=== PATIENT | male | born 1960 | race African-American/Black ===

== ENCOUNTER → 2016-11-23 | Outpatient (CLI) | payer MEDICARE, OTHER ==
[~2016-11-23] MED LIST: CEPH-460 PO; CITA10TA4 PO; HYDR-3535 PO; METH500T3 PO; OXYC1TAB63 PO; SENN1TAB PO; TRAZ50TA4 PO; WALKER WHEELS/F1 MIS; WHEEMIS3; Z.0.NO CURRENT MEDS
[2016-11-23 10:44] LABS: BLOOD, URINE NEG (NEG); GLUCOSE,URINE NEG (NEG); KETONE, URINE NEG (NEG); NITRITE,URINE NEG (NEG); SQUAMOUS EPITHELIAL CELL URINE 1 /hpf (0-5)
[2016-11-23 10:51] LABS: COMMENT (UR) CULT NOT INDICATED; CULTURE IF INDICATED CULT NOT INDICATED
[2016-11-23 10:52] LABS: URINE COLOR STRAW (YELLW/STRAW)
[2016-11-23 10:52] LABS: AUTOMATED NEUTROPHIL # 4.2 TH/MM3 (1.8-7.7); BASOPHIL % 0.6 % (0.0-2.0); EOSINOPHIL # 0.2 TH/MM3 (0-0.4); EOSINOPHIL % 2.9 % (0.0-4.0); HEMATOCRIT 44.9 % (39.0-51.0); HEMO FLAGS DIFF FINAL; LYMPH % 33.1 % (9.0-44.0); LYMPHOCYTE # 2.5 TH/MM3 (1.0-4.8); MEAN CELL VOLUME 90.5 FL (80.0-100.0); MEAN CORPUSCULAR HEMOGLOBIN 31.5 PG (27.0-34.0); MEAN CORPUSCULAR HGB CONC 34.8 % (32.0-36.0); MONO % 6.6 % (0.0-8.0); NEUT % 56.8 % (16.0-70.0); PLATELET COUNT 296 TH/MM3 (150-450); RED BLOOD COUNT 4.96 MIL/MM3 (4.50-5.90); RED CELL DISTRIBUTION WIDTH 14.1 % (11.6-17.2); WHITE BLOOD COUNT 7.4 TH/MM3 (4.0-11.0)
[2016-11-23 11:07] LABS: ANION GAP 6 MEQ/L (5-15); AST (GOT) 15 U/L (15-37); BICARBONATE 24.8 MEQ/L (21.0-32.0); BLOOD UREA NITROGEN 11 MG/DL (7-18); CHLORIDE 104 MEQ/L (98-107); GLOMERULAR FILTRATION RATE 91 ML/MIN (>89); GLUCOSE,FASTING 101 MG/DL (74-99); POTASSIUM 3.7 MEQ/L (3.5-5.1); SODIUM (NA) 135 MEQ/L (136-145)
[2016-11-23 11:19] LABS: ALKALINE PHOSPHATASE 84 U/L (45-117); ALT (GPT) 17 U/L (12-78); HDL CHOLESTEROL 41.6 MG/DL (40.0-60.0); LDL CHOLESTEROL 171 MG/DL (0-99); TOTAL BILIRUBIN ADULT 0.5 MG/DL (0.2-1.0)
== END ==
LOC: CLAB 10:06
PROVIDERS: ATTEND Family Medicine
DX: E78.00 Pure hypercholesterolemia, unspecified (principal); D52.9 Folate deficiency anemia, unspecified; D51.9 Vitamin B12 deficiency anemia, unspecified; E03.9 Hypothyroidism, unspecified; R82.90 Unspecified abnormal findings in urine; E55.9 Vitamin D deficiency, unspecified; Z79.891 Long term (current) use of opiate analgesic; Z12.5 Encounter for screening for malignant neoplasm of prostate; R97.20 Elevated prostate specific antigen [PSA]
CPT/HCPCS: 36415; 80053; 80061; 81001; 82306; 84153; 84443; 85025

== ENCOUNTER 2016-12-26 16:20 | Inpatient (IN) | payer MEDICARE, OTHER ==
[~2016-12-26 16:20] MED LIST changes: -CEPH-460 PO; -METH500T3 PO; -OXYC1TAB63 PO; -SENN1TAB PO; -WALKER WHEELS/F1 MIS; -WHEEMIS3
[2016-12-26 16:22] VITALS: O2SAT 95
[2016-12-26] MEDS ORDERED: DIPHTH/TETANUS/ACEL PERTUSSIS (BOOSTER) 0.5 ML VIAL/PFS IM ONE (16:30)
[2016-12-26] MEDS ORDERED: ceFAZolin 2 GM PREMIX 50 ML ONE (16:30)
[2016-12-26] MEDS ORDERED: MORPHINE SULFATE 8 MG/ML INJ ONE (16:35)
[2016-12-26 16:57] LABS: AUTOMATED NEUTROPHIL # 5.7 TH/MM3 (1.8-7.7); BASOPHIL # 0.1 TH/MM3 (0-0.2); EOSINOPHIL # 0.2 TH/MM3 (0-0.4); EOSINOPHIL % 1.7 % (0.0-4.0); HEMATOCRIT 45.9 % (39.0-51.0); HEMO FLAGS DIFF FINAL; LYMPH % 39.3 % (9.0-44.0); LYMPHOCYTE # 4.4 TH/MM3 (1.0-4.8); MEAN CELL VOLUME 92.9 FL (80.0-100.0); MEAN CORPUSCULAR HEMOGLOBIN 30.3 PG (27.0-34.0); MEAN CORPUSCULAR HGB CONC 32.6 % (32.0-36.0); MONO % 7.1 % (0.0-8.0); NEUT % 50.9 % (16.0-70.0); PLATELET COUNT 298 TH/MM3 (150-450); RED BLOOD COUNT 4.94 MIL/MM3 (4.50-5.90); RED CELL DISTRIBUTION WIDTH 14.2 % (11.6-17.2); WHITE BLOOD COUNT 11.1 TH/MM3 (4.0-11.0)
[2016-12-26 16:59] LABS: I-STAT POTASSIUM 3.6 MMOL/L (3.5-4.9)
[2016-12-26] MEDS ORDERED: IOHEXOL 350 MG/ML 10 ML VIAL (for RAD DIAG) IVCONTRAST ONE (16:59)
--- NOTE | 2016-12-26 17:01 | RADRPT ---
EXAM DATE/TIME: 12/26/2016 16:20 [facility] COMPARISON: No previous studies available for comparison. INDICATIONS : Trauma alert. Fell off of a roof. MEDICAL HISTORY : None. SURGICAL HISTORY : None. ENCOUNTER: Initial ACUITY: 1 day PAIN SCORE: 5/10 LOCATION: Bilateral chest FINDINGS: A single view of the chest demonstrates the lungs to be symmetrically aerated without evidence of mas s, infiltrate or effusion. The cardiomediastinal contours are unremarkable. Osseous structures are intact. CONCLUSION: No acute abnormality demonstrated. Reese Dye MD on December 26, 2016 at 16:59 Board Certified Radiologist. This report was verified electronically.
--- NOTE | 2016-12-26 17:02 | RADRPT ---
EXAM DATE/TIME: 12/26/2016 16:52 [facility] COMPARISON: No previous studies available for comparison. INDICATIONS : Trauma alert, fall from roof today. RADIATION DOSE: 60.63 CTDIvol (mGy) MEDICAL HISTORY : Non-responsive. SURGICAL HISTORY : Non-responsive. ENCOUNTER: Initial ACUITY: 1 day PAIN SCALE: Non-responsive LOCATION: Bilateral head TECHNIQUE: Multiple contiguous axial images were obtained of the head. Using automated exposure control and adj ustment of the mA and/or kV according to patient size, radiation dose was kept as low as reasonably a chievable to obtain optimal diagnostic quality images. DICOM format image data is available electro nically for review and comparison. FINDINGS: CEREBRUM: The ventricles are normal for age. No evidence of midline shift, mass lesion, hemorrhage or acute in farction. No extra-axial fluid collections are seen. POSTERIOR FOSSA: The cerebellum and brainstem are intact. The 4th ventricle is midline. The cerebellopontine angle i s unremarkable. EXTRACRANIAL: The visualized portion of the orbits is intact. SKULL: The calvaria is intact. No evidence of skull fracture. CONCLUSION: No bleed or other acute intracranial abnormality. Reese Dye MD on December 26, 2016 at 17:00 Board Certified Radiologist. This report was verified electronically.
--- NOTE | 2016-12-26 17:02 | RADRPT ---
EXAM DATE/TIME: 12/26/2016 16:20 [facility] COMPARISON: No previous studies available for comparison. INDICATIONS : Trauma alert. Fell off of a roof. MEDICAL HISTORY : None. SURGICAL HISTORY : None. ENCOUNTER: Initial ACUITY: 1 day PAIN SCORE: 5/10 LOCATION: Bilateral pelvis FINDINGS: Small osseous fragment adjacent to the left anterior iliac spine. Osseous structures otherwise intact . The joint spaces are maintained. CONCLUSION: 1. Questionable avulsion fracture of the left anterior superior iliac spine Pj Frausto MD on December 26, 2016 at 16:58 Board Certified Radiologist. This report was verified electronically.
--- NOTE | 2016-12-26 17:03 | RADRPT ---
EXAM DATE/TIME: 12/26/2016 16:20 [facility] COMPARISON: No previous studies available for comparison. INDICATIONS : Trauma alert. Fell off of a roof. MEDICAL HISTORY : None. SURGICAL HISTORY : None. ENCOUNTER: Initial ACUITY: 1 day PAIN SCORE: 5/10 LOCATION: Right foot. FINDINGS: Single crosstable view of the right foot reveals grossly normal bony alignment. No definite evidence of fracture or dislocation. CONCLUSION: 1. No significant acute bony fracture or dislocation. Pj Frausto MD on December 26, 2016 at 17:01 Board Certified Radiologist. This report was verified electronically.
[2016-12-26 17:05] LABS: APTT (PATIENT) 26.4 SEC (24.3-30.1)
--- NOTE | 2016-12-26 17:06 | RADRPT ---
EXAM DATE/TIME: 12/26/2016 16:20 [facility] COMPARISON: No previous studies available for comparison. INDICATIONS : Trauma alert. Fell off of a roof. MEDICAL HISTORY : None. SURGICAL HISTORY : None. ENCOUNTER: Initial ACUITY: 1 day PAIN SCORE: 5/10 LOCATION: Right ankle. FINDINGS: There is an intra-articular fracture through the body of the calcaneus. Remaining osseous structures appear intact. Talar dome is intact. There is less portions of the tarsal bones are intact. Soft tiss ues are grossly unremarkable. CONCLUSION: 1. Intra-articular calcaneal fracture. Pj Frausto MD on December 26, 2016 at 17:02 Board Certified Radiologist. This report was verified electronically.
--- NOTE | 2016-12-26 17:07 | RADRPT ---
EXAM DATE/TIME: 12/26/2016 16:20 [facility] COMPARISON: No previous studies available for comparison. INDICATIONS : Trauma alert. Fell off of a roof. MEDICAL HISTORY : None. SURGICAL HISTORY : None. ENCOUNTER: Initial ACUITY: 1 day PAIN SCORE: 9/10 LOCATION: Right hand, fifth digit. FINDINGS: Medial subluxation and angulation seen across the little finger proximal joint. I don't clearly see a fracture. Other bones of the right hand appear normal in outline. CONCLUSION: Medially subluxed fifth proximal interphalangeal joint. Reese Dye MD on December 26, 2016 at 17:05 Board Certified Radiologist. This report was verified electronically.
--- NOTE | 2016-12-26 17:08 | RADRPT ---
EXAM DATE/TIME: 12/26/2016 16:20 [facility] COMPARISON: No previous studies available for comparison. INDICATIONS : Trauma alert. Fell off of a roof. MEDICAL HISTORY : None. SURGICAL HISTORY : None. ENCOUNTER: Initial ACUITY: 1 day PAIN SCORE: 9/10 LOCATION: Left hand, fourth digit. FINDINGS: Evaluation of the distal middle digit is limited to presence of oxygen saturation probe. Osseous stru ctures appear intact without evidence for significant acute bony fracture. Joint spaces are grossly m aintained. Soft tissue swelling is noted overlying the distal ulnar forearm. CONCLUSION: 1. No significant acute fracture or dislocation. Pj Frausto MD on December 26, 2016 at 17:05 Board Certified Radiologist. This report was verified electronically.
--- NOTE | 2016-12-26 17:11 | RADRPT ---
EXAM DATE/TIME: 12/26/2016 16:52 [facility] COMPARISON: No previous studies available for comparison. INDICATIONS : Trauma alert: fall off roof. RADIATION DOSE: 21.55 CTDIvol (mGy) MEDICAL HISTORY : None SURGICAL HISTORY : None. ENCOUNTER: Initial ACUITY: 1 day PAIN SCALE: Non-responsive LOCATION: neck TECHNIQUE: Volumetric scanning of the cervical spine was performed. Multiplanar reconstructions in the sagittal, coronal and oblique axial planes were performed. Using automated exposure control and adjustment o f the mA and/or kV according to patient size, radiation dose was kept as low as reasonably achievable to obtain optimal diagnostic quality images. DICOM format image data is available electronically f or review and comparison. FINDINGS: No fracture or subluxation seen in cervical spine. Vertebral bodies have normal height. Mild disc space narrowing and small, broad/diffuse disc osteophyte complex seen at C5/C6. In general discontinuity seen posteriorly at the C1 ring. 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 CONCLUSION: Intact cervical spine. Reese Dye MD on December 26, 2016 at 17:08 Board Certified Radiologist. This report was verified electronically.
--- NOTE | 2016-12-26 17:14 | RADRPT ---
EXAM DATE/TIME: 12/26/2016 16:57 This report includes an Addendum and supersedes previous reports for this exam. [facility] COMPARISON: No previous studies available for comparison. INDICATIONS : Trauma alert: fall off roof. IV CONTRAST: 97 cc Omnipaque 350 (iohexol) IV ; Cumulative dose for multiple exams. ORAL CONTRAST: No oral contrast ingested. RADIATION DOSE: 18.54 CTDIvol (mGy) ; Combined studies - Thorax/Abdomen/Pelvis MEDICAL HISTORY : None SURGICAL HISTORY : None. ENCOUNTER: Initial ACUITY: 1 day PAIN SCALE: 7/10 LOCATION: Bilateral abdomen TECHNIQUE: Volumetric scanning of the abdomen and pelvis was performed. Using automated exposure control and ad justment of the mA and/or kV according to patient size, radiation dose was kept as low as reasonably achievable to obtain optimal diagnostic quality images. DICOM format image data is available electro nically for review and comparison. FINDINGS: LIVER: Homogeneous density without lesion. There is no dilation of the biliary tree. No calcified gallston es. SPLEEN: Normal size without lesion. PANCREAS: Within normal limits. KIDNEYS: Normal in size and shape. 4.7 cm cyst of the right lower pole and a 1.3 cm cyst of the left upper po le. There is no solid mass, stone or hydronephrosis. ADRENAL GLANDS: Within normal limits. VASCULAR: There is no aortic aneurysm. BOWEL/MESENTERY: The stomach, small bowel, and colon demonstrate no acute abnormality. There is no free intraperitone al air or fluid. A small hiatal hernia present. ABDOMINAL WALL: Within normal limits. RETROPERITONEUM: There is no lymphadenopathy. BLADDER: No wall thickening or mass. REPRODUCTIVE: Within normal limits. INGUINAL: There is no lymphadenopathy or hernia. MUSCULOSKELETAL: There is a fracture laterally of the left 10th rib with approximately one shaft width of medial displ acement. Other visualized osseous structures are intact. CONCLUSION: Mildly displaced left 10th rib fracture. No visceral organ injury or other acute abnormality. Bilater al renal cysts are noted. There is also a small hiatal hernia. Reese Dye MD on December 26, 2016 at 17:10 Board Certified Radiologist. This report was verified electronically. ADDENDUM: There is an acute avulsion fracture of the left anterior, superior iliac spine. The avulsion fracture fragment measures approximately 9 x 11 x 15 mm in size and is by approximately 6 mm, for e xample series 601 image 38. Finding relayed by phone to the emergency room physician, Dr. Thompson. Reese Dye MD on December 26, 2016 at 17:33 Board Certified Radiologist. This report was verified electronically.
--- NOTE | 2016-12-26 17:18 | RADRPT ---
EXAM DATE/TIME: 12/26/2016 16:57 [facility] COMPARISON: No previous studies available for comparison. INDICATIONS : Trauma alert: fall off roof. IV CONTRAST: 97 cc Omnipaque 350 (iohexol) IV ; Cumulative dose for multiple exams. RADIATION DOSE: 18.54 CTDIvol (mGy) ; Combined studies - Thorax/Abdomen/Pelvis MEDICAL HISTORY : None SURGICAL HISTORY : None. ENCOUNTER: Initial ACUITY: 1 day PAIN SCALE: 7/10 LOCATION: Bilateral chest TECHNIQUE: Volumetric scanning of the chest was performed. Using automated exposure control and adjustment of t he mA and/or kV according to patient size, radiation dose was kept as low as reasonably achievable to obtain optimal diagnostic quality images. DICOM format image data is available electronically for review and comparison. Follow-up recommendations for detected pulmonary nodules are based at a minimum on nodule size and pa tient risk factors according to Fleischner Society Guidelines. FINDINGS: There is mild dependent atelectasis of both lungs. No infiltrate, effusion or pneumothorax. Heart and mediastinum within normal limits. No hematoma. There is an acute fracture laterally of the left 10th rib with approximately one shaft width of media l displacement of the more distal fracture fragment. Other visualized osseous structures are intact. Costosternal degenerative changes are noted. CONCLUSION: 1. Mildly displaced fracture laterally of the left 10th rib. 2. No pneumothorax, hemothorax or other acute intrathoracic abnormality. 3. Mild dependent atelectasis of both lungs. Reese Dye MD on December 26, 2016 at 17:13 Board Certified Radiologist. This report was verified electronically.
[2016-12-26] MEDS ORDERED: NALOXONE HCL 0.4 MG/ML AMP IV PUSH PRN (17:30)
[2016-12-26] MEDS ORDERED: SODIUM CHLORIDE 0.9% FLUSH 10 ML FLUSH IV FLUSH PRN (17:30)
[2016-12-26] MEDS ORDERED: ENOXAPARIN SODIUM 40 MG/0.4 ML SYRINGE SQ SCH (17:30)
[2016-12-26] MEDS ORDERED: HYDROmorphone HCL PF 1 MG/ML VIAL IVS ONE (17:30)
[2016-12-26] MEDS ORDERED: ONDANSETRON HCL 4 MG/2 ML VIAL IV PRN (17:30)
[2016-12-26] MEDS ORDERED: ONDANSETRON HCL 4 MG/2 ML VIAL IVP ONE (17:30)
[2016-12-26] MEDS ORDERED: oxyCODONE/ACETAMINOPHEN 5 MG/325 MG TAB PO PRN (17:30)
[2016-12-26] MEDS ORDERED: Post-op Orders (for Pharmacy) MISC XX ONE (17:30)
--- NOTE | 2016-12-26 17:33 | RADRPT ---
EXAM DATE/TIME: 12/26/2016 16:57 [facility] COMPARISON: CT ABDOMEN & PELVIS W CONTRAST, December 26, 2016, 16:57. INDICATIONS : Trauma alert, fall from roof today. RADIATION DOSE: ; Reconstructed from previous dataset, no dose MEDICAL HISTORY : Non-responsive. SURGICAL HISTORY : Non-responsive. ENCOUNTER: Initial ACUITY: 1 day PAIN SCALE: Non-responsive LOCATION: Bilateral lower back TECHNIQUE: Volumetric scanning of the lumbar spine was performed. Multiplanar reconstructions in the sagittal, coronal and oblique axial planes were performed. Using automated exposure control and adjustment of the mA and/or kV according to patient size, radiation dose was kept as low as reasonably achievable t o obtain optimal diagnostic quality images. DICOM format image data is available electronically for review and comparison. FINDINGS: VERTEBRAE: Normal vertebral body height. ALIGNMENT: No evidence of subluxation. Paraspinal soft tissues: Partially imaged cyst in the pupil the right kidney. Atherosclerotic ossifications of the abdominal a osorio. T12-L1: The thecal sac has a normal diameter. No evidence of disc bulge or protrusion. The neural foramina are patent bilaterally. L1-L2: Minimal diffuse disc bulge without significant central canal or neural foraminal stenosis. L2-L3: Mild diffuse disc bulge without significant central canal or neural foraminal stenosis. L3-L4: Diffuse disc bulge with ligamentum flavum hypertrophy. Mild effacement of the anterior thecal sac. Mi ld caudal neural foraminal narrowing L4-L5: Right eccentric diffuse disc bulge with ligament of flavum hypertrophy and minimal bilateral facet ar thropathy. Mild effacement of the anterior thecal sac. Moderate caudal right neural foraminal narrowi ng. L5-S1: Mild diffuse disc bulge and ligamentum flavum hypertrophy. No significant central canal or neural for aminal stenosis. CONCLUSION: 1. No acute fracture or subluxation. 2. Degenerative spondylosis of the lower lumbar spine most prominently at L3-5, as above. Pj Frausto MD on December 26, 2016 at 17:24 Board Certified Radiologist. This report was verified electronically.
--- NOTE | 2016-12-26 17:33 | RADRPT ---
EXAM DATE/TIME: 12/26/2016 16:57 [facility] COMPARISON: No previous studies available for comparison. INDICATIONS : Trauma, fall from roof today. RADIATION DOSE: ; Reconstructed from previous dataset, no dose MEDICAL HISTORY : Non-responsive. SURGICAL HISTORY : Non-responsive. ENCOUNTER: Initial ACUITY: 1 day PAIN SCALE: Non-responsive LOCATION: Bilateral upper back TECHNIQUE: Volumetric scanning of the thoracic spine was performed. Multiplanar reconstructions in the sagittal , coronal and oblique axial planes were performed. Using automated exposure control and adjustment o f the mA and/or kV according to patient size, radiation dose was kept as low as reasonably achievable to obtain optimal diagnostic quality images. DICOM format image data is available electronically f or review and comparison. FINDINGS: There is a slight S-shaped thoracolumbar curvature. No fracture or subluxation. Mild disc space narrowing and anterolateral osseous ridging seen at T2/T3 and also each level from T6 /T7-T10/T11. No acute disc herniation demonstrated. No evidence of foraminal or spinal stenosis. CONCLUSION: Intact thoracic spine. Mild multilevel degenerative changes. Reese Dye MD on December 26, 2016 at 17:27 Board Certified Radiologist. This report was verified electronically.
--- NOTE | 2016-12-26 18:04 | MH ---
cc: MD NIVIA,JESUS DATE OF ADMISSION 12/26/[address] Gates, trauma REASON FOR ADMISSION Multiple injuries, fall. HISTORY OF PRESENT DISEASE This is 56-year-old male presented to the emergency room as a regular evaluation, was upgraded to trauma alert due to mechanism of multiple injuries he sustained. The patient was brought in on a spinal board with a C-collar in place. The patient apparently fell off a ladder about 8 feet down, landed on his hands and feet and then some on his chest. He never lost consciousness, did not hit head. He complains about the pain in both hands which are bleeding. PAST MEDICAL HISTORY That of previous back injury, the patient is disabled. PAST SURGICAL HISTORY He denies. MEDICATIONS __ chronic pain medications. PHYSICAL EXAMINATION GENERAL: Reveals a 56-year-old male in no acute distress. HEENT/NECK: Normocephalic. No trauma to the head. Pupils equally reactive. Extraocular muscles intact. Neck is supple. Bilateral carotid pulses. No bruits. No and osullivan sign, no raccoon's eyes. No signs trauma to the neck. CHEST: Bilateral breath sounds. HEART: Regular rhythm. The patient is hemodynamically stable. Is tender over the left lateral chest and lower portion consistent with a single rib fracture in the area and contusions of the chest. Some bruising noted in this area. ABDOMEN: Soft. Active bowel sounds. No rebound or guarding. No masses. Appears to be soft. PELVIS: Appears to be stable. The patient is somewhat tender over both flanks, right and left but I do not see any injuries there. EXTREMITIES: The patient has bilateral femoral, popliteal, dorsalis pedis, posterior tibial pulses, bilateral brachial, radial, ulnar pulses. He has open fractures on both hands with dislocation of the digit. Swelling of the right ankle and foot. FINAL DIAGNOSIS Bilateral open hand fractures with dislocation, right proximal calcaneal fracture (intra-articular), left nondisplaced tenth rib fracture with contusion and possible slight avulsion of the iliac crest. The patient will be admitted and appropriate services are consulted. Jesus Gates SJ/JULI /5:37 PM /5:53 PM
--- NOTE | 2016-12-26 18:31 | PD ---
HPI Chief Complaint: Trauma (Alert) Time Seen by Provider: 16:30 Travel History International Travel<30 days: No Contact w/Intl Traveler<30days: No Traveled to known affect area: No History of Present Illness HPI This is a 56 year-old gentleman who presents via EMS after he fell from a roof while climbing on a ladder. The patient was reportedly up on the roof to check on a bird cage. The patient reportedly fell greater than 10 feet. He initially was not called a trauma alert however report was that he had an right ankle fracture bilateral open finger fractures as well as a questionable left sided rib fracture. When the patient arrived he appeared to be in discomfort and was made a trauma alert. Dr. Gates happened to be in the emergency department and saw the patient briefly with this physician. [facility] Social History Alcohol Use: No Tobacco Use: Yes Allergies-Medications (Allergen,Severity, Reaction): Coded Allergies: oxymorphone (Unverified Allergy, Mild, Itching, 11/24/16) Reported Meds & Prescriptions Reported Meds & Active Scripts Active No Active Prescriptions or Reported Medications Review of Systems Except as stated in HPI: all other systems reviewed are Neg HENT: No: Headaches, Neck Pain Cardiovascular: Positive: Chest Pain or Discomfort (left lateral chest/rib pain ), No: Palpitations Respiratory: No: Cough, Shortness of Breath Gastrointestinal: Positive: Abdominal Pain (bilateral lateral abdominal pain), No: Nausea, Vomiting Genitourinary: No: Incontinence, Flank Pain Musculoskeletal: Positive: Pain (right ankle/foot. Right fifth finger and middle finger, left fourth finger) Skin: Positive Other (lacerations to the right volar surface of the middle finger and medial PIP volar distribution of the right hand. Laceration to the distal left fourth PIP laceration) Neurologic: Positive: Dizziness, No: Headache Physical Exam Narrative GENERAL: Well developed well-nourished male in C-spine backboard immobilization. SKIN: Focused skin assessment warm/dry. HEAD: Atraumatic. Normocephalic. EYES: Pupils equal and round. No scleral icterus. No injection or drainage. ENT: No nasal bleeding or discharge. Mucous membranes pink and moist. NECK: Trachea midline. In c-collar immobilization. CARDIOVASCULAR: Regular rate and rhythm. No murmur appreciated. RESPIRATORY: No accessory muscle use. Clear to auscultation. Breath sounds equal bilaterally. She has tenderness in his left lateral lower ribs. No crepitance appreciated. GASTROINTESTINAL: Abdomen soft, nondistended. He had tenderness in his left and right lateral abdominal distribution. No rebound. MUSCULOSKELETAL: Obvious deformity to the right fifth finger. Obvious deformity to the distal left fourth finger. There are lacerations noted on the volar surface of the right middle finger and volar of the right fifth finger. Patient also has a laceration to the volar surface of the left fourth finger with distal deformity suspicious for dislocation. She also has tenderness to palpation in his right lateral foot near the heel. Ankle. He be intact without deformity. Refill was intact over his distal 5 toes. He was able to wiggle his toes and his fingers. BACK: Mild tenderness to palpation in the paraspinous distribution of the lower thoracic and upper lumbar spine. No obvious posterior spinous process tenderness. NEUROLOGICAL: Awake and alert. No obvious cranial nerve deficits. Motor grossly within normal limits. Normal speech. PSYCHIATRIC: Appropriate mood and affect; insight and judgment normal. Data Data Last Documented VS Vital Signs Date Time Temp Pulse Resp B/P (MAP) Pulse Ox O2 Delivery O2 Flow Rate FiO2 12/26/16 16:22 95 4.00 Orders Orders Cefazolin 2 Gm Premix (Ancef 2 Gm Premix (12/26/16 16:30) [id number] (Booster) Inj (Boostrix (12/26/16 16:30) Morphine Inj (Morphine Inj) (12/26/16 16:35) I-Stat Profile (12/26/16 16:31) I-Stat Creatinine (12/26/16 16:31) Complete Blood Count With Diff (12/26/16 16:31) Prothrombin Time / Inr (Pt) (12/26/16 16:31) Act Partial Throm Time (Ptt) (12/26/16 16:31) Type And Screen (12/26/16 16:31) Chest, Single Ap (12/26/16 16:31) Pelvis, Ap Only (Routine) (12/26/16 16:31) Ct Brain W/O Iv Contrast(Rout) (12/26/16 16:31) Ct Cerv Spine W/O Contrast (12/26/16 16:31) Ct Abd/Pel W Iv Contrast(Rout) (12/26/16 16:31) Ct Thorax/ Chest W Iv Contrast (12/26/16 16:31) Ct Thor Spine W/O Contrast (12/26/16 16:31) Ct Lumb Spine W/O Contrast (12/26/16 16:31) Iv Access Insert/Monitor (12/26/16 16:31) Ecg Monitoring (12/26/16 16:31) Oximetry (12/26/16 16:31) Oxygen Administration (12/26/16 16:31) Ed Poc Ultrasound (12/26/16 16:31) Ankle, Limited (Ap&Lat) (12/26/16 ) Hand, One View (12/26/16 ) Hand, One View (12/26/16 ) Foot, One View (12/26/16 ) Iohexol 350 Inj (Omnipaque 350 Inj) (12/26/16 16:59) Ondansetron Inj (Zofran Inj) (12/26/16 17:30) Hydromorphone Pf Inj (Dilaudid Pf Inj) (12/26/16 17:30) Admit To Inpatient (12/26/16 ) Code Status (12/26/16 17:29) Vital Signs (Adult) Q4H (12/26/16 17:29) Activity Oob With Assistance (12/26/16 17:29) Intake + Output KATARZYNA.QSHIFT (12/26/16 17:29) Diet Npo (12/26/16 Dinner) Sodium Chlor 0.9% 1000 Ml Inj (Ns 1000 M (12/26/16 17:29) Sodium Chloride 0.9% Flush (Ns Flush) (12/26/16 17:30) Sodium Chloride 0.9% Flush (Ns Flush) (12/26/16 21:00) Ondansetron Inj (Zofran Inj) (12/26/16 17:30) Famotidine (Pepcid) (12/26/16 21:00) Basic Metabolic Panel (Bmp) (12/27/16 06:00) Complete Blood Count With Diff (12/27/16 06:00) Resp Incentive Spirometry (12/26/16 ) Post-Op Orders (For Pharmacy) (Post-Op O (12/26/16 17:30) Oxycodone-Acetamin 5-325 Mg (Percocet (12/26/16 17:30) Morphine Inj (Morphine Inj) (12/26/16 17:30) Naloxone Inj (Narcan Inj) (12/26/16 17:30) Enoxaparin Inj (Lovenox Inj) (12/26/16 17:30) Inpatient Certification (12/26/16 ) Consult Hand Surgery (12/26/16 ) (Hub Use Only)Inp Phy Cons/Ref (12/26/16 ) Finger (Sal9zog) (12/26/16 17:46) Finger (Cwj0uxn) (12/26/16 17:46) Finger (Vgo9jrz) (12/26/16 17:46) Labs Laboratory Tests Test 12/26/16 16:32 White Blood Count 11.1 TH/MM3 Red Blood Count 4.94 MIL/MM3 Hemoglobin 15.0 GM/DL Bedside Hemoglobin 15.6 G/DL Hematocrit 45.9 % Bedside Hematocrit 46.0 % Mean Corpuscular Volume 92.9 FL Mean Corpuscular Hemoglobin 30.3 PG Mean Corpuscular Hemoglobin Concent 32.6 % Red Cell Distribution Width 14.2 % Platelet Count 298 TH/MM3 Mean Platelet Volume 6.6 FL Neutrophils (%) (Auto) 50.9 % Lymphocytes (%) (Auto) 39.3 % Monocytes (%) (Auto) 7.1 % Eosinophils (%) (Auto) 1.7 % Basophils (%) (Auto) 1.0 % Neutrophils # (Auto) 5.7 TH/MM3 Lymphocytes # (Auto) 4.4 TH/MM3 Monocytes # (Auto) 0.8 TH/MM3 Eosinophils # (Auto) 0.2 TH/MM3 Basophils # (Auto) 0.1 TH/MM3 CBC Comment DIFF FINAL Differential Comment Prothrombin Time 11.0 SEC Prothromb Time International Ratio 1.0 RATIO Activated Partial Thromboplast Time 26.4 SEC Bedside Sodium 141 MMOL/L Bedside Potassium 3.6 MMOL/L Bedside Chloride 103 MMOL/L Bedside Blood Urea Nitrogen 15 MG/DL Bedside Creatinine 1.4 MG/DL Bedside Glucose 93 MG/DL MDM Medical Decision Making Medical Screen Exam Complete: Yes Emergency Medical Condition: Yes Interpretation(s) Last 24 hours Impressions Thoracic Spine CT 12/26/16 0141 Signed Impressions: Service Date/Time: Monday, December 26, 2016 16:57 - CONCLUSION: Intact thoracic spine. Mild multilevel degenerative changes. Reese Dye MD Pelvis X-Ray 12/26/16 1631 Signed Impressions: Service Date/Time: Monday, December 26, 2016 16:20 - CONCLUSION: 1. Questionable avulsion fracture of the left anterior superior iliac spine Pj Frausto MD Lumbar Spine CT 12/26/16 1631 Signed Impressions: Service Date/Time: Monday, December 26, 2016 16:57 - CONCLUSION: 1. No acute fracture or subluxation. 2. Degenerative spondylosis of the lower lumbar spine most prominently at L3-5, as above. Pj Frausto MD Head CT 12/26/16 1631 Signed Impressions: Service Date/Time: Monday, December 26, 2016 16:52 - CONCLUSION: No bleed or other acute intracranial abnormality. Reese Dye MD Chest X-Ray 12/26/16 1631 Signed Impressions: Service Date/Time: Monday, December 26, 2016 16:20 - CONCLUSION: No acute abnormality demonstrated. Reese Dye MD Chest CT 12/26/16 1631 Signed Impressions: Service Date/Time: Monday, December 26, 2016 16:57 - CONCLUSION: 1. Mildly displaced fracture laterally of the left 10th rib. 2. No pneumothorax, hemothorax or other acute intrathoracic abnormality. 3. Mild dependent atelectasis of both lungs. Reese Dye MD Cervical Spine CT 12/26/16 1631 Signed Impressions: Service Date/Time: Monday, December 26, 2016 16:52 - CONCLUSION: Intact cervical spine. Reese Dye MD Abdomen/Pelvis CT 12/26/16 1631 Signed Impressions: Service Date/Time: Monday, December 26, 2016 16:57 - CONCLUSION: Mildly displaced left 10th rib fracture. No visceral organ injury or other acute abnormality. Bilateral renal cysts are noted. There is also a small hiatal hernia. Reese Dye MD ADDENDUM: There is an acute avulsion fracture of the left anterior, superior iliac spine. The avulsion fracture fragment measures approximately 9 x 11 x 15 mm in size and is by approximately 6 mm, for example series 601 image 38. Finding relayed by phone to the emergency room physician, Dr. Thompson. Reese Dye MD Hand X-Ray 12/26/16 0000 Signed Impressions: Service Date/Time: Monday, December 26, 2016 16:20 - CONCLUSION: 1. No significant acute fracture or dislocation. Pj Frausto MD Hand X-Ray 12/26/16 0000 Signed Impressions: Service Date/Time: Monday, December 26, 2016 16:20 - CONCLUSION: Medially subluxed fifth proximal interphalangeal joint. Reese Dye MD Foot X-Ray 12/26/16 0000 Signed Impressions: Service Date/Time: Monday, December 26, 2016 16:20 - CONCLUSION: 1. No significant acute bony fracture or dislocation. Pj Frausto MD Ankle X-Ray 12/26/16 0000 Signed Impressions: Service Date/Time: Monday, December 26, 2016 16:20 - CONCLUSION: 1. Intra-articular calcaneal fracture. Pj Frausto MD Differential Diagnosis To cranial injury versus right ankle/calcaneal injury versus right fifth and third finger injury versus left fourth finger injury Narrative Course This is a 56-year-old male who presents after falling from the roof while up on a ladder. The patient complained of bilateral hand pain, left lateral rib pain , left and right lateral abdominal wall pain and right lower extremity pain. The patient has an intra-articular right calcaneus fracture. He also has subluxation of his right PIP joint of his right fifth finger. There is also a distal subluxation of the left fourth DIP joint. Dr. Brito, on-call hand surgeon, has been gracious enough to come down and see the patient. He has reduced the subluxation's. His requested that we wash the lacerations and repair. He'll see the patient in consultation. Dr. Gates, on-call trauma surgeon will admit the patient to the trauma service. Dr. José Miguel Chauhan on-call for orthopedics has been made aware of the calcaneus fracture. He has been placed in a right stirrup and posterior splint. There is an avulsion fracture of the pelvis as well. Diagnosis Primary Impression: right intra-articular calcaneus fracture Additional Impressions: right fifth finger subluxation/laceration right middle finger laceration left fourth finger laceration and distal subluxation a avulsion pelvic fracture left 10th rib fracture Admitting Information Admitting Physician Requests: Observation Scripts No Active Prescriptions or Reported Meds Dawit Thompson MD Dec 26, 2016 18:30
--- NOTE | 2016-12-26 18:34 | RADRPT ---
EXAM DATE/TIME: 12/26/2016 18:21 [facility] COMPARISON: HAND, LEFT, ONE VIEW, December 26, 2016, 16:20. INDICATIONS : Post reduction. MEDICAL HISTORY : None. SURGICAL HISTORY : None. ENCOUNTER: Initial ACUITY: 1 day PAIN SCORE: 0/10 LOCATION: Left 4th Digit. FINDINGS: Interval reduction of the distal fourth phalangeal dislocation. There is now anatomic alignment. No e vidence for significant acute bony fracture. CONCLUSION: 1. Anatomic alignment status post reduction of distal fourth phalangeal dislocation. No significant a cute fracture. Pj Frausto MD on December 26, 2016 at 18:30 Board Certified Radiologist. This report was verified electronically.
--- NOTE | 2016-12-26 18:42 | RADRPT ---
EXAM DATE/TIME: 12/26/2016 18:23 [facility] COMPARISON: No previous studies available for comparison. INDICATIONS : Post reduction. MEDICAL HISTORY : None. SURGICAL HISTORY : None. ENCOUNTER: Initial ACUITY: 1 day PAIN SCORE: 0/10 LOCATION: Right 3rd Digit. FINDINGS: Examination of the third digit of the right hand demonstrates no evidence of fracture or dislocation. No radiopaque foreign bodies are seen. The soft tissues are intact. CONCLUSION: Intact right long finger. Reese Dye MD on December 26, 2016 at 18:40 Board Certified Radiologist. This report was verified electronically.
--- NOTE | 2016-12-26 19:00 | RADRPT ---
EXAM DATE/TIME: 12/26/2016 18:23 [facility] COMPARISON: HAND, RIGHT, ONE VIEW, December 26, 2016, 16:20. INDICATIONS : Post reduction. MEDICAL HISTORY : None. SURGICAL HISTORY : None. ENCOUNTER: Initial ACUITY: 1 day PAIN SCORE: 0/10 LOCATION: Right 5th digit FINDINGS: Previously seen dislocation of the little finger proximal interphalangeal joint has been reduced into normal alignment. An approximately 1.4 mm fracture fragment is seen volar to the joint. There is als o a volar, lateral soft tissue injury. CONCLUSION: Interim reduction of the previously seen fifth proximal interphalangeal joint dislocation into normal alignment. Tiny volar plate avulsion fracture fragment is noted as well as a soft tissue defect. Reese Dye MD on December 26, 2016 at 18:57 Board Certified Radiologist. This report was verified electronically.
[2016-12-26] MEDS: SODIUM CHLOR 0.9% 1000 ML INJ 1,000 ML IV SCH (19:07)
[2016-12-26] MEDS ORDERED: BUPIVACAINE HCL PF 0.5% 10 ML VIAL INFIL ONE (19:15)
--- NOTE | 2016-12-26 19:24 | MB ---
cc: MIGUEL MCKEON MD DATE OF CONSULTATION: 12/26/2016. REASON FOR CONSULTATION: Bilateral hand injuries. HISTORY OF PRESENT ILLNESS: The patient is a 56-year-old right hand dominant male brought in as a trauma alert following a fall from a ladder. The patient was noticed to have dislocation of the right little finger and left ring finger. Hand surgery was consulted. The patient complains of deformity of the right little finger. He also complains of laceration over the right little and ring fingers. He also complains of painful range of motion of the right little finger. He denies any tingling or numbness. The patient also complains of deformity of the left ring finger distal joint. Range of motion is associated with pain. Denies any tingling or numbness. He also complains of laceration over the left ring finger region. The patient also has multiple other injuries. He is alert. He complains of pain on the left side. He also complains of pain over the right foot region. PAST MEDICAL HISTORY / PAST SURGICAL HISTORY: His past medical and surgical history are noted. EXAMINATION: The patient is alert, oriented x3. Examination of the right hand reveals deformity of the little finger on the PIP joint. The finger is deviated towards the ulnar aspect. There is a laceration along the volar ulnar aspect of the PIP joint measuring 2-3 cm in an oblique fashion. Exposed soft tissue is noted over the region. The patient has no active flexion at the PIP joint. Range of motion is associated with pain. He has intact distal circulation. He has intact distal sensation. There is a laceration over the volar aspect of the PIP joint in a "U" shaped fashion with a proximal-based flap. On further exploration, the flexor tendons are exposed. The patient is able to actively flex the PIP and DIP joints of the ring finger. He has intact sensation distally. Examination of left ring finger reveals deformity of the distal interphalangeal joint with laceration along the radial aspect of the PIP joint region. The finger is deviated laterally at the DIP joint. Range of motion of the DIP joint of the ring finger is associated pain and limited. He has intact distal sensation. He has intact distal circulation. IMAGING STUDIES: X-rays of the right hand shows dorsomedial dislocation of the PIP joint right little finger PIP joint. X-rays of the left hand show dorsal dislocation of the DIP joint of the ring finger. ASSESSMENT: 56-year-old male with open dislocation of the right little finger PIP joint and open dislocation of left ring finger DIP joint with laceration right ring finger. The wound was thoroughly washed. Keeping the MP joint flexed, a closed reduction of the right little finger PIP joint was carried out. The patient tolerated the procedure well. He was able to actively flex the PIP joint and DIP joint after reduction. He had intact sensation over the pulp region. The wound over the left ring finger PIP joint was thoroughly cleaned and closed reduction was carried out to bringing the distal phalanx over the PIP joint. I was able to obtain closed reduction. He was able to actively flex the DIP joint after closed reduction, he had intact sensation and circulation distally. PLAN: 1. The plan will be to suture the laceration after we obtain post reduction x-rays. 2. He will also need a dorsal block splint to the right little finger. Hand surgery will follow. Miguel Mckeon MD SE/DIEGO /6:21 PM /7:01 PM TITO
[2016-12-26 20:00] VITALS: BP 138/86; PULSE 81; RESP 16; O2SAT 97
--- NOTE | 2016-12-26 20:13 | PD ---
Physical Exam Date Seen by Provider: Dec 26, 2016 Time Seen by Provider: 20:11 Narrative I was asked by Dr. Thompson to repair lacerations. Please see his documentation for full history and physical. Data Data Last Documented VS Vital Signs Date Time Temp Pulse Resp B/P (MAP) Pulse Ox O2 Delivery O2 Flow Rate FiO2 12/26/16 16:22 95 4.00 Orders Orders Cefazolin 2 Gm Premix (Ancef 2 Gm Premix (12/26/16 16:30) [id number] (Booster) Inj (Boostrix (12/26/16 16:30) Morphine Inj (Morphine Inj) (12/26/16 16:35) I-Stat Profile (12/26/16 16:31) I-Stat Creatinine (12/26/16 16:31) Complete Blood Count With Diff (12/26/16 16:31) Prothrombin Time / Inr (Pt) (12/26/16 16:31) Act Partial Throm Time (Ptt) (12/26/16 16:31) Type And Screen (12/26/16 16:31) Chest, Single Ap (12/26/16 16:31) Pelvis, Ap Only (Routine) (12/26/16 16:31) Ct Brain W/O Iv Contrast(Rout) (12/26/16 16:31) Ct Cerv Spine W/O Contrast (12/26/16 16:31) Ct Abd/Pel W Iv Contrast(Rout) (12/26/16 16:31) Ct Thorax/ Chest W Iv Contrast (12/26/16 16:31) Ct Thor Spine W/O Contrast (12/26/16 16:31) Ct Lumb Spine W/O Contrast (12/26/16 16:31) Iv Access Insert/Monitor (12/26/16 16:31) Ecg Monitoring (12/26/16 16:31) Oximetry (12/26/16 16:31) Oxygen Administration (12/26/16 16:31) Ed Poc Ultrasound (12/26/16 16:31) Ankle, Limited (Ap&Lat) (12/26/16 ) Hand, One View (12/26/16 ) Hand, One View (12/26/16 ) Foot, One View (12/26/16 ) Iohexol 350 Inj (Omnipaque 350 Inj) (12/26/16 16:59) Ondansetron Inj (Zofran Inj) (12/26/16 17:30) Hydromorphone Pf Inj (Dilaudid Pf Inj) (12/26/16 17:30) Admit To Inpatient (12/26/16 ) Code Status (12/26/16 17:29) Vital Signs (Adult) Q4H (12/26/16 17:29) Activity Oob With Assistance (12/26/16 17:29) Intake + Output KATARZYNA.QSHIFT (12/26/16 17:29) Diet Npo (12/26/16 Dinner) Sodium Chlor 0.9% 1000 Ml Inj (Ns 1000 M (12/26/16 17:29) Sodium Chloride 0.9% Flush (Ns Flush) (12/26/16 17:30) Sodium Chloride 0.9% Flush (Ns Flush) (12/26/16 21:00) Ondansetron Inj (Zofran Inj) (12/26/16 17:30) Famotidine (Pepcid) (12/26/16 21:00) Basic Metabolic Panel (Bmp) (12/27/16 06:00) Complete Blood Count With Diff (12/27/16 06:00) Resp Incentive Spirometry (12/26/16 ) Post-Op Orders (For Pharmacy) (Post-Op O (12/26/16 17:30) Oxycodone-Acetamin 5-325 Mg (Percocet (12/26/16 17:30) Morphine Inj (Morphine Inj) (12/26/16 17:30) Naloxone Inj (Narcan Inj) (12/26/16 17:30) Enoxaparin Inj (Lovenox Inj) (12/26/16 17:30) Inpatient Certification (12/26/16 ) Consult Hand Surgery (12/26/16 ) (Hub Use Only)Inp Phy Cons/Ref (12/26/16 ) Finger (Kst3ulb) (12/26/16 17:46) Finger (Oms5aau) (12/26/16 17:46) Finger (Eeo5xin) (12/26/16 17:46) Bupivacaine Pf 0.5% Inj (Marcaine Pf 0.5 (12/26/16 19:15) Fiberglass Short Leg Splint Ad (12/26/16 ) Fiberglass Sugartong Sp Ad Sl (12/26/16 ) Ice Cuff (12/26/16 ) Fiberglass Splint Forearm Adul (12/26/16 ) Finger Splint (12/26/16 ) Admit Order (Ed Use Only) (12/26/16 19:23) Labs Laboratory Tests Test 12/26/16 16:32 White Blood Count 11.1 TH/MM3 Red Blood Count 4.94 MIL/MM3 Hemoglobin 15.0 GM/DL Bedside Hemoglobin 15.6 G/DL Hematocrit 45.9 % Bedside Hematocrit 46.0 % Mean Corpuscular Volume 92.9 FL Mean Corpuscular Hemoglobin 30.3 PG Mean Corpuscular Hemoglobin Concent 32.6 % Red Cell Distribution Width 14.2 % Platelet Count 298 TH/MM3 Mean Platelet Volume 6.6 FL Neutrophils (%) (Auto) 50.9 % Lymphocytes (%) (Auto) 39.3 % Monocytes (%) (Auto) 7.1 % Eosinophils (%) (Auto) 1.7 % Basophils (%) (Auto) 1.0 % Neutrophils # (Auto) 5.7 TH/MM3 Lymphocytes # (Auto) 4.4 TH/MM3 Monocytes # (Auto) 0.8 TH/MM3 Eosinophils # (Auto) 0.2 TH/MM3 Basophils # (Auto) 0.1 TH/MM3 CBC Comment DIFF FINAL Differential Comment Prothrombin Time 11.0 SEC Prothromb Time International Ratio 1.0 RATIO Activated Partial Thromboplast Time 26.4 SEC Bedside Sodium 141 MMOL/L Bedside Potassium 3.6 MMOL/L Bedside Chloride 103 MMOL/L Bedside Blood Urea Nitrogen 15 MG/DL Bedside Creatinine 1.4 MG/DL Bedside Glucose 93 MG/DL [facility] Supervised Visit with VIDA: No Procedures Procedure Narrative LACERATION LOCATION: Left posterior elbow LENGTH: 2 cm NUMBER OF STITCHES/ADEEL: 4 simple interrupted sutures REPAIR: The area of the laceration was prepped with Betadine and sterilely draped. The laceration was infiltrated with 1% lidocaine with epinephrine. The wound was copiously irrigated and explored without evidence of foreign body, tendon injury or neurovascular injury. The wound was closed using 4-0 Prolene. This was a single layer repair. A sterile dressing was applied. The patient was advised to keep the dressing clean and dry. Patient tolerated the procedure well. LACERATION LOCATION: Right fifth finger LENGTH: 2 cm NUMBER OF STITCHES/ADEEL: 3 simple interrupted sutures REPAIR: The area of the laceration was prepped with Betadine and sterilely draped. The laceration was infiltrated with 1% lidocaine and 0.5% Marcaine. The wound was copiously irrigated and explored without evidence of foreign body, tendon injury or neurovascular injury. The wound was closed using 4-0 Prolene. This was a single layer repair. A sterile dressing was applied. The patient was advised to keep the dressing clean and dry. Patient tolerated the procedure well. LACERATION LOCATION: Right fourth finger LENGTH: 3 cm NUMBER OF STITCHES/ADEEL: 4 simple interrupted sutures REPAIR: The area of the laceration was prepped with Betadine and sterilely draped. The laceration was infiltrated with 1% lidocaine and 0.5% Marcaine. The wound was copiously irrigated and explored without evidence of foreign body, tendon injury or neurovascular injury. The wound was closed using 4-0 Prolene. This was a single layer repair. A sterile dressing was applied. The patient was advised to keep the dressing clean and dry. Patient tolerated the procedure well. Diagnosis Primary Impression: right intra-articular calcaneus fracture Additional Impressions: a avulsion pelvic fracture left 10th rib fracture left fourth finger laceration and distal subluxation right fifth finger subluxation/laceration right middle finger laceration Scripts No Active Prescriptions or Reported Meds Nakia Maxwell Dec 26, 2016 20:13
[2016-12-26 20:59] VITALS: BP 120/78; PULSE 67; RESP 18; TEMP 98.2; O2SAT 95
[2016-12-26] MEDS: FAMOTIDINE 20 MG TAB PO SCH (21:00)
[2016-12-26] MEDS: MORPHINE SULFATE 4 MG/ML INJ IV PUSH PRN (22:15)
[2016-12-26] MEDS: SODIUM CHLORIDE 0.9% FLUSH 10 ML FLUSH IV FLUSH SCH (22:15)
[2016-12-27 00:37] VITALS: BP 132/82; PULSE 69; RESP 18; TEMP 98; O2SAT 95
[2016-12-27] MEDS: SODIUM CHLOR 0.9% 1000 ML INJ 1,000 ML IV SCH ×2 (03:29→13:18)
[2016-12-27 04:06] VITALS: BP 129/81; PULSE 80; RESP 18; TEMP 99.8; O2SAT 95
[2016-12-27] MEDS: METHOCARBAMOL 500 MG TAB PO SCH ×3 (07:15→21:40)
[2016-12-27] MEDS ORDERED: LACTULOSE SYRUP 20 GM/30 ML CUP PO PRN (07:15)
[2016-12-27 07:53] VITALS: BP 125/68; PULSE 74; RESP 16; TEMP 99.2; O2SAT 92
--- NOTE | 2016-12-27 08:28 | MB ---
cc: JESSICA ELDER M.D. DATE OF CONSULTATION: 12/27/2016 REASON FOR CONSULTATION Right calcaneus fracture. HISTORY OF PRESENT ILLNESS 56-year-old male who is a trauma alert patient presenting to [facility] Emergency Room after a fall off of a roof. He apparently fell at least 8 feet and landed on his hands and feet. He complains of right foot pain as well as right hand pain. He sustained multiple injuries to the right hand and has undergone hand surgery already. In regards to his right foot, he complains of pain in the region of the heel bone and calcaneus. It is a throbbing aching pain, moderate severity. He does have relief with ice and elevation. No numbness or tingling. No referred symptoms as related to his foot. PAST MEDICAL HISTORY The patient states he is disabled from previous back injury. PAST SURGICAL HISTORY Prior to admission was none. SOCIAL HISTORY He does not drink alcohol. He does smoke cigarettes. ALLERGIES Include OXYMORPHONE. MEDICATION He currently takes no medications. REVIEW OF SYSTEMS Negative for 12 systems other than HPI. PHYSICAL EXAMINATION GENERAL: The patient is a well-nourished male lying in bed, awake, alert, no distress. HEENT: Normocephalic, atraumatic. Pupils are round, reactive to light and accommodation. Extraocular muscles are intact. NECK: Supple. LUNGS: Clear. HEART: Regular rate and rhythm. ABDOMEN: Soft, nontender. EXTREMITIES: Examination of the right lower extremity, he does have a splint of the right foot with swelling of the right foot and tenderness in the region of the calcaneus. He flexes his toes distally, brisk cap refill, sensation intact. IMAGING STUDIES X-rays two views of the right ankle as well as one view of the right foot were performed, which does reveal a calcaneus fracture which is intra-articular to the subtalar joint and minimally displaced. IMPRESSION 56-year-old male status post fall off a roof, right calcaneus fracture with minimal displacement, intra-articular, smoker. PLAN Discussed the diagnosis with the patient, I recommend nonoperative treatment, ice, elevation, maintain splint, strict non-weightbearing for 3 months, right lower extremity. The patient can followup with the undersigned in the [facility] after discharge. MD JENNY Hairston/SURAJ /8:03 AM 8:14 AM
--- NOTE | 2016-12-27 09:37 | RADRPT ---
EXAM DATE/TIME: 12/27/2016 08:26 [place] COMPARISON: CHEST SINGLE AP, December 26, 2016, 16:20. INDICATIONS : Shortness of breath, concern for atelectasis. MEDICAL HISTORY : Fracture, left 10th rib. Atelectasis. SURGICAL HISTORY : None. ENCOUNTER: Initial ACUITY: 2 days PAIN SCORE: 3/10 LOCATION: Bilateral chest FINDINGS: The heart size is normal. The lungs are grossly clear. There is elevation of the right hemidiaphragm. CONCLUSION: No acute disease. Reese Saldana MD on December 27, 2016 at 9:35 Board Certified Radiologist. This report was verified electronically.
[2016-12-27] MEDS: SODIUM CHLORIDE 0.9% FLUSH 10 ML FLUSH IV FLUSH SCH ×2 (10:00→20:09)
[2016-12-27] MEDS: FAMOTIDINE 20 MG TAB PO SCH ×2 (10:02→20:08)
[2016-12-27] MEDS: MORPHINE SULFATE 4 MG/ML INJ IV PUSH PRN (10:02)
[2016-12-27] MEDS: DOCUSATE SODIUM 50 MG/SENNA 8.6 MG TAB PO SCH ×2 (10:02→20:09)
[2016-12-27 10:03] LABS: AUTOMATED NEUTROPHIL # 8.1 TH/MM3 (1.8-7.7); BASOPHIL # 0.1 TH/MM3 (0-0.2); BASOPHIL % 0.5 % (0.0-2.0); EOSINOPHIL # 0.1 TH/MM3 (0-0.4); EOSINOPHIL % 0.9 % (0.0-4.0); HEMATOCRIT 46.4 % (39.0-51.0); HEMO FLAGS DIFF FINAL; LYMPH % 21.3 % (9.0-44.0); LYMPHOCYTE # 2.5 TH/MM3 (1.0-4.8); MEAN CELL VOLUME 92.1 FL (80.0-100.0); MEAN CORPUSCULAR HEMOGLOBIN 30.9 PG (27.0-34.0); MEAN CORPUSCULAR HGB CONC 33.5 % (32.0-36.0); MONO % 8.9 % (0.0-8.0); NEUT % 68.4 % (16.0-70.0); PLATELET COUNT 282 TH/MM3 (150-450); RED BLOOD COUNT 5.04 MIL/MM3 (4.50-5.90); RED CELL DISTRIBUTION WIDTH 13.9 % (11.6-17.2); WHITE BLOOD COUNT 11.8 TH/MM3 (4.0-11.0)
[2016-12-27 10:31] LABS: BICARBONATE 23.4 MEQ/L (21.0-32.0); POTASSIUM 3.5 MEQ/L (3.5-5.1)
[2016-12-27] MEDS: LIDOCAINE HCL 5% PATCH T-DERMAL SCH (10:53)
[2016-12-27] MEDS ORDERED: OXYC1TAB63 PO (10:59)
[2016-12-27] MEDS ORDERED: METH500T3 PO (10:59)
[2016-12-27] MEDS ORDERED: WALKER WHEELS/F1 MIS (11:15)
[2016-12-27 11:17] VITALS: BP 121/79; PULSE 73; RESP 16; TEMP 97.6; O2SAT 94
[2016-12-27] MEDS ORDERED: SENN1TAB PO (11:17)
--- NOTE | 2016-12-27 11:34 | HHI.DS ---
Discharge Summary Admission Date Dec 26, 2016 at 19:25 Discharge Date: Dec 27, 2016 Admitting Diagnosis multiple fractures, pelvic fracture, hand lacerations. Brief History S/P Trauma: Fall CBC/BMP: 12/27/16 0850 12/27/16 0850 Significant Findings Laboratory Tests Test 12/26/16 16:32 12/27/16 08:50 White Blood Count 11.1 TH/MM3 (4.0-11.0) 11.8 TH/MM3 (4.0-11.0) Mean Platelet Volume 6.6 FL (7.0-11.0) Bedside Creatinine 1.4 MG/DL (0.8-1.3) Monocytes (%) (Auto) 8.9 % (0.0-8.0) Neutrophils # (Auto) 8.1 TH/MM3 (1.8-7.7) Monocytes # (Auto) 1.1 TH/MM3 (0-0.9) Estimat Glomerular Filtration Rate 83 ML/MIN (>89) Imaging Last Impressions Chest X-Ray 12/27/16 0000 Signed Impressions: Service Date/Time: Tuesday, December 27, 2016 08:26 - CONCLUSION: No acute disease. Reese Saldana MD Finger X-Ray 12/26/16 1746 Signed Impressions: Service Date/Time: Monday, December 26, 2016 18:23 - CONCLUSION: Intact right long finger. Reese Dye MD Thoracic Spine CT 12/26/16 163 Signed Impressions: Service Date/Time: Monday, December 26, 2016 16:57 - CONCLUSION: Intact thoracic spine. Mild multilevel degenerative changes. Reese Dye MD Pelvis X-Ray 12/26/16 163 Signed Impressions: Service Date/Time: Monday, December 26, 2016 16:20 - CONCLUSION: 1. Questionable avulsion fracture of the left anterior superior iliac spine Pj Frausto MD Lumbar Spine CT 12/26/16 163 Signed Impressions: Service Date/Time: Monday, December 26, 2016 16:57 - CONCLUSION: 1. No acute fracture or subluxation. 2. Degenerative spondylosis of the lower lumbar spine most prominently at L3-5, as above. Pj Frausto MD Head CT 12/26/16 163 Signed Impressions: Service Date/Time: Monday, December 26, 2016 16:52 - CONCLUSION: No bleed or other acute intracranial abnormality. Reese Dye MD Chest CT 12/26/16 1631 Signed Impressions: Service Date/Time: Monday, December 26, 2016 16:57 - CONCLUSION: 1. Mildly displaced fracture laterally of the left 10th rib. 2. No pneumothorax, hemothorax or other acute intrathoracic abnormality. 3. Mild dependent atelectasis of both lungs. Reese Dye MD Cervical Spine CT 12/26/16 1631 Signed Impressions: Service Date/Time: Monday, December 26, 2016 16:52 - CONCLUSION: Intact cervical spine. Reese Dye MD Abdomen/Pelvis CT 12/26/16 1631 Signed Impressions: Service Date/Time: Monday, December 26, 2016 16:57 - CONCLUSION: Mildly displaced left 10th rib fracture. No visceral organ injury or other acute abnormality. Bilateral renal cysts are noted. There is also a small hiatal hernia. Reese Dye MD ADDENDUM: There is an acute avulsion fracture of the left anterior, superior iliac spine. The avulsion fracture fragment measures approximately 9 x 11 x 15 mm in size and is by approximately 6 mm, for example series 601 image 38. Finding relayed by phone to the emergency room physician, Dr. Thompson. Reese Dye MD Hand X-Ray 12/26/16 0000 Signed Impressions: Service Date/Time: Monday, December 26, 2016 16:20 - CONCLUSION: 1. No significant acute fracture or dislocation. Pj Frausto MD Foot X-Ray 12/26/16 0000 Signed Impressions: Service Date/Time: Monday, December 26, 2016 16:20 - CONCLUSION: 1. No significant acute bony fracture or dislocation. Pj Frausto MD Ankle X-Ray 12/26/16 0000 Signed Impressions: Service Date/Time: Monday, December 26, 2016 16:20 - CONCLUSION: 1. Intra-articular calcaneal fracture. Pj Frausto MD PE at Discharge GENERAL: 56-year-old well-nourished, well developed male sitting on the side of the bed. SKIN: Warm and dry. HEAD: Normocephalic. ENT: No nasal bleeding or discharge. Mucous membranes pink and moist. NECK: Trachea midline. No JVD. CARDIOVASCULAR: Regular rate and rhythm. RESPIRATORY: No accessory muscle use. Lungs clear to auscultation. Breath sounds equal bilaterally. GASTROINTESTINAL: Abdomen soft, non-tender, nondistended. + BS. MUSCULOSKELETAL: Extremities without cyanosis, or edema. RLE in soft splint, + sensation. Right little finger splint in place. Moves all fingers, sensation intact. NEUROLOGICAL: Awake and alert. Normal speech. Hospital Course [place]: Fell off a roof approximately 8-10 feet landing on his hands and feet. No LOC. INJURIES: RIGHT calcaneus fx LEFT rib fx (10th) Open RIGHT fifth finger subluxation and lac RIGHT middle finger laceration Open LEFT ring finger lac and subluxation ? avulsion pelvic fracture LEFT elbow lac (sutures) 12/26: LEFT fourth finger and RIGHT fifth finger reduction PMHx: Osteoarthritis Diet: Regular Pulm: IS, encouraged home use Pain: Robaxin, Lidoderm patch, Morphine IV, Percocet Activity: OOB.PT ordered GI: Pepcid Bowel: Dee-colace. Lactulose PRN LBM 0 DVT: SCDs, Lovenox 40 QD RIGHT calcaneus fx, questionable avulsion pelvic fracture Orthopedics consulted Nonoperative management Pain control NWB RLE Maintain splint to RLE OOB-PT Follow-up as outpatient Open RIGHT fifth finger subluxation and lac, RIGHT middle finger laceration, Open LEFT ring finger lac and subluxation, LEFT elbow lac 12/26: LEFT fourth finger and RIGHT fifth finger reduction in ED Hand surgery consulted Pain control Nonoperative management Daily wound care Maintain finger splints Keflex 500 BID x 5 days Follow-up with hand surgery as outpatient LEFT rib fx Supportive care Pain control Pulmonary toileting OOB Plan of care discussed with patient at bedside. Follow-up with PCP in 1 week Patient is clear from trauma surgery standpoint to safely discharge home. Pt Condition on Discharge: Stable Discharge Disposition: Discharge Home Discharge Instructions DIET: Follow Instructions for: As Tolerated, No Restrictions Activities you can perform: See Additionl Instruction Activities to Avoid: Strenuous Activity Other Activity Instructions: Nonweightbearing to right leg, keep splint clean and dry. Nadir Ozuna Dec 27, 2016 11:34
[2016-12-27] MEDS ORDERED: CEPH-460 PO (12:54)
[2016-12-27] MEDS: ENOXAPARIN SODIUM 40 MG/0.4 ML SYRINGE SQ SCH (13:18)
[2016-12-27 16:00] VITALS: BP 149/90; PULSE 76; RESP 16; TEMP 97.9; O2SAT 96
[2016-12-27] MEDS: oxyCODONE/ACETAMINOPHEN 10 MG/325 MG TAB PO PRN ×2 (16:56→21:40)
[2016-12-27 20:12] VITALS: BP 130/82; PULSE 74; RESP 18; TEMP 98.4; O2SAT 95
--- NOTE | 2016-12-27 21:49 | EKG ---
Date Performed: 12/27/2016 Time Performed: 04:45:43 PTAGE: 56 years EKG: Sinus rhythm NORMAL ECG PREVIOUS TRACING : 11/24/2002 09.07 No significant change from previous tracing noted. DOCTOR: Juan Juarez Interpretating Date/Time 12/27/2016 21:48:47
[2016-12-28 00:12] VITALS: BP 133/87; PULSE 69; RESP 18; TEMP 98.3; O2SAT 95
[2016-12-28] MEDS: oxyCODONE/ACETAMINOPHEN 10 MG/325 MG TAB PO PRN ×3 (06:01→13:35)
[2016-12-28] MEDS: METHOCARBAMOL 500 MG TAB PO SCH ×2 (06:01→13:35)
--- NOTE | 2016-12-28 07:20 | HHI.FPPN ---
Subjective Remarks PT ASKING TO DC ASKING ABOUT PAIN MEDS Objective Vitals Vital Signs Date Time Temp Pulse Resp B/P (MAP) Pulse Ox O2 Delivery O2 Flow Rate FiO2 12/28/16 00:12 98.3 69 18 133/87 (102) 95 12/27/16 20:12 98.4 74 18 130/82 (98) 95 12/27/16 16:00 97.9 76 16 149/90 (109) 96 12/27/16 11:17 97.6 73 16 121/79 (93) 94 12/27/16 07:53 99.2 74 16 125/68 (87) 92 I/O 12/27/16 12/27/16 12/27/16 12/28/16 12/28/16 12/28/16 07:00 15:00 23:00 07:00 15:00 23:00 Intake Total 0 ml 720 ml 240 ml 240 ml Output Total 600 ml 550 ml 400 ml Balance -600 ml 720 ml -310 ml -160 ml Intake Oral 0 ml 720 ml 240 ml 240 ml Output Urine Total 600 ml 550 ml 400 ml # Voids 2 # Bowel Movements 0 0 0 0 Result Diagram: 12/27/16 0850 12/27/16 0850 Objective Remarks GENERAL: SKIN: Warm and dry. RLE WRAPPED, RUE WRAPPED W SPLINT HEAD: Atraumatic. Normocephalic. EYES: Pupils equal and round. No scleral icterus. No injection or drainage. ENT: No nasal bleeding or discharge. Mucous membranes pink and moist. NECK: Trachea midline. No JVD. CARDIOVASCULAR: Regular rate and rhythm. RESPIRATORY: No accessory muscle use. Clear to auscultation. Breath sounds equal bilaterally. GASTROINTESTINAL: Abdomen soft, non-tender, nondistended. Hepatic and splenic margins not palpable. MUSCULOSKELETAL: Extremities without clubbing, cyanosis, or edema. No obvious deformities. NEUROLOGICAL: Awake and alert. No obvious cranial nerve deficits. Motor grossly within normal limits. 3 out of 5 muscle strength in the arms and legs. Normal speech. PSYCHIATRIC: Appropriate mood and affect; insight and judgment normal. A/P Problem List: (1) Carpal tunnel syndrome ICD Codes: G56.00 - Carpal tunnel syndrome Status: Acute (2) Cervical spondylosis without myelopathy ICD Codes: M47.9 - Cervical spondylosis without myelopathy Status: Acute (3) Unspecified subluxation of left ring finger, initial encounter ICD Codes: S63.205A - Unspecified subluxation of left ring finger, initial encounter (4) Unspecified subluxation of right little finger, initial encounter ICD Codes: S63.206A - Unspecified subluxation of right little finger, initial encounter (5) Right calcaneal fracture ICD Codes: S92.001A - Unspecified fracture of right calcaneus, initial encounter for closed fracture (6) Left rib fracture ICD Codes: S22.32XA - Fracture of one rib, left side, initial encounter for closed fracture Problem Qualifiers (1) Right calcaneal fracture: Qualified Codes: S92.001A - Unspecified fracture of right calcaneus, initial encounter for closed fracture (2) Left rib fracture: Qualified Codes: S22.32XA - Fracture of one rib, left side, initial encounter for closed fracture Lee Camargo MD Dec 28, 2016 07:20
[2016-12-28 08:00] VITALS: BP 118/79; PULSE 72; RESP 18; TEMP 98; O2SAT 96
[2016-12-28] MEDS: SODIUM CHLORIDE 0.9% FLUSH 10 ML FLUSH IV FLUSH SCH (09:00)
[2016-12-28] MEDS ORDERED: CEPHALEXIN MONOHYDRATE 500 MG CAP PO SCH (09:00)
[2016-12-28] MEDS: LIDOCAINE HCL 5% PATCH T-DERMAL SCH (09:30)
[2016-12-28] MEDS: FAMOTIDINE 20 MG TAB PO SCH (09:31)
[2016-12-28] MEDS: DOCUSATE SODIUM 50 MG/SENNA 8.6 MG TAB PO SCH (09:31)
--- NOTE | 2016-12-28 10:49 | HHI.FF ---
Face to Face Verification Diagnosis: (1) Unspecified subluxation of left ring finger, initial encounter (2) Unspecified subluxation of right little finger, initial encounter (3) Right calcaneal fracture (4) Left rib fracture Physical Therapy Order: Evaluate and Treat, Improve ambulation, Strength and gait training Home Health Nursing Order: Nursing assessment with vital signs I have seen patient Jose Tsai on 12/28/16. My clinical findings support the need for the requested home health care services because: Ltd mobility - disease progression Limited ability to care for self High risk of falls I certify that my clinical findings support that this patient is homebound because: Unsteady gait/balance Nadir Ozuna Dec 28, 2016 10:49
--- NOTE | 2016-12-28 10:54 | HHI.DS ---
Discharge Summary Admission Date Dec 26, 2016 at 19:25 Discharge Date: Dec 28, 2016 Admitting Diagnosis multiple fractures, pelvic fracture, hand lacerations. (1) Unspecified subluxation of left ring finger, initial encounter ICD Codes: S63.205A - Unspecified subluxation of left ring finger, initial encounter (2) Unspecified subluxation of right little finger, initial encounter ICD Codes: S63.206A - Unspecified subluxation of right little finger, initial encounter (3) Right calcaneal fracture ICD Codes: S92.001A - Unspecified fracture of right calcaneus, initial encounter for closed fracture (4) Left rib fracture ICD Codes: S22.32XA - Fracture of one rib, left side, initial encounter for closed fracture Brief History S/P Trauma: Fall CBC/BMP: 12/27/16 0850 12/27/16 0850 Significant Findings Laboratory Tests Test 12/26/16 16:32 12/27/16 08:50 White Blood Count 11.1 TH/MM3 (4.0-11.0) 11.8 TH/MM3 (4.0-11.0) Mean Platelet Volume 6.6 FL (7.0-11.0) Bedside Creatinine 1.4 MG/DL (0.8-1.3) Monocytes (%) (Auto) 8.9 % (0.0-8.0) Neutrophils # (Auto) 8.1 TH/MM3 (1.8-7.7) Monocytes # (Auto) 1.1 TH/MM3 (0-0.9) Estimat Glomerular Filtration Rate 83 ML/MIN (>89) Imaging Last Impressions Chest X-Ray 12/27/16 0000 Signed Impressions: Service Date/Time: Tuesday, December 27, 2016 08:26 - CONCLUSION: No acute disease. Reese Saldana MD Finger X-Ray 12/26/16 1746 Signed Impressions: Service Date/Time: Monday, December 26, 2016 18:23 - CONCLUSION: Intact right long finger. Reese Dye MD Thoracic Spine CT 12/26/16 1631 Signed Impressions: Service Date/Time: Monday, December 26, 2016 16:57 - CONCLUSION: Intact thoracic spine. Mild multilevel degenerative changes. Reese Dye MD Pelvis X-Ray 12/26/16 1631 Signed Impressions: Service Date/Time: Monday, December 26, 2016 16:20 - CONCLUSION: 1. Questionable avulsion fracture of the left anterior superior iliac spine Pj Frausto MD Lumbar Spine CT 12/26/16 1631 Signed Impressions: Service Date/Time: Monday, December 26, 2016 16:57 - CONCLUSION: 1. No acute fracture or subluxation. 2. Degenerative spondylosis of the lower lumbar spine most prominently at L3-5, as above. Pj Frausto MD Head CT 12/26/16 1631 Signed Impressions: Service Date/Time: Monday, December 26, 2016 16:52 - CONCLUSION: No bleed or other acute intracranial abnormality. Reese Dye MD Chest CT 12/26/16 1631 Signed Impressions: Service Date/Time: Monday, December 26, 2016 16:57 - CONCLUSION: 1. Mildly displaced fracture laterally of the left 10th rib. 2. No pneumothorax, hemothorax or other acute intrathoracic abnormality. 3. Mild dependent atelectasis of both lungs. Reese Dye MD Cervical Spine CT 12/26/16 1631 Signed Impressions: Service Date/Time: Monday, December 26, 2016 16:52 - CONCLUSION: Intact cervical spine. Reese Dye MD Abdomen/Pelvis CT 12/26/16 1631 Signed Impressions: Service Date/Time: Monday, December 26, 2016 16:57 - CONCLUSION: Mildly displaced left 10th rib fracture. No visceral organ injury or other acute abnormality. Bilateral renal cysts are noted. There is also a small hiatal hernia. Reese Dye MD ADDENDUM: There is an acute avulsion fracture of the left anterior, superior iliac spine. The avulsion fracture fragment measures approximately 9 x 11 x 15 mm in size and is by approximately 6 mm, for example series 601 image 38. Finding relayed by phone to the emergency room physician, Dr. Thompson. Reese Dye MD Hand X-Ray 12/26/16 0000 Signed Impressions: Service Date/Time: Monday, December 26, 2016 16:20 - CONCLUSION: 1. No significant acute fracture or dislocation. Pj Frausto MD Foot X-Ray 12/26/16 0000 Signed Impressions: Service Date/Time: Monday, December 26, 2016 16:20 - CONCLUSION: 1. No significant acute bony fracture or dislocation. Pj Frausto MD Ankle X-Ray 12/26/16 0000 Signed Impressions: Service Date/Time: Monday, December 26, 2016 16:20 - CONCLUSION: 1. Intra-articular calcaneal fracture. Pj Frausto MD PE at Discharge GENERAL: 56-year-old well-nourished, well developed male lying in bed in no distress. SKIN: Warm and dry. HEAD: Normocephalic. ENT: No nasal bleeding or discharge. Mucous membranes pink and moist. NECK: Trachea midline. No JVD. CARDIOVASCULAR: Regular rate and rhythm. RESPIRATORY: No accessory muscle use. Lungs clear to auscultation. Breath sounds equal bilaterally. GASTROINTESTINAL: Abdomen soft, non-tender, nondistended. + BS. MUSCULOSKELETAL: Extremities without cyanosis, or edema. RLE in soft splint, + sensation. Right little finger splint in place. Moves all fingers, sensation intact. NEUROLOGICAL: Awake and alert. Normal speech. Hospital Course [place]: Fell off a roof approximately 8-10 feet landing on his hands and feet. No LOC. INJURIES: RIGHT calcaneus fx LEFT rib fx (10th) Open RIGHT fifth finger subluxation and lac RIGHT middle finger laceration Open LEFT ring finger lac and subluxation ? avulsion pelvic fracture LEFT elbow lac (sutures) 12/26: LEFT fourth finger and RIGHT fifth finger reduction PMHx: Osteoarthritis Diet: Regular Pulm: IS, encouraged home use Pain: Robaxin, Lidoderm patch, Percocet Activity: OOB.PT and OT ordered GI: Pepcid Bowel: Dee-colace. Lactulose PRN LBM 0 DVT: SCDs, Lovenox 40 QD RIGHT calcaneus fx, questionable avulsion pelvic fracture Orthopedics consulted Nonoperative management Pain control NWB RLE Maintain splint to RLE OOB-PT Follow-up as outpatient Open RIGHT fifth finger subluxation and lac, RIGHT middle finger laceration, Open LEFT ring finger lac and subluxation, LEFT elbow lac 12/26: LEFT fourth finger and RIGHT fifth finger reduction in ED Hand surgery consulted Pain control Nonoperative management Daily wound care Maintain finger splints Keflex 500 BID x 5 days Follow-up with hand surgery as outpatient LEFT rib fx Supportive care Pain control Pulmonary toileting OOB Plan of care discussed with patient at bedside. 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 Requesting to go home. Follow-up within PCP in 1 week Patient is clear from trauma surgery standpoint to safely discharge home with C. Pt Condition on Discharge: Stable Discharge Disposition: Disch w/ Home Health Serv Discharge Instructions DIET: Follow Instructions for: As Tolerated, No Restrictions Activities you can perform: See Additionl Instruction Activities to Avoid: Strenuous Activity Other Activity Instructions: Nonweightbearing to right leg, keep splint clean and dry. Nadir Ozuna Dec 28, 2016 10:54
[2016-12-28 12:00] VITALS: BP 132/78; PULSE 66; RESP 18; TEMP 98.3; O2SAT 96
[2016-12-28] MEDS ORDERED: WHEEMIS3 (12:54)
[2016-12-28] MEDS: ENOXAPARIN SODIUM 40 MG/0.4 ML SYRINGE SQ SCH (13:36)
--- NOTE | 2016-12-28 21:24 | MB ---
cc: ADAMSARMANDO DATE OF CONSULTATION 12/28/16 CHIEF COMPLAINT Fall with numerous fractures. HISTORY OF PRESENT ILLNESS Jose Tsai is a 56-year-old -Filipino male who fell off his roof on 12/26/2016 and presented to [facility]. He had right ankle fracture and bilateral open finger fractures and was called for a trauma alert and seen by Dr. Gates. I was consulted for medical consultation. The patient was found to have right intraarticular calcaneus fracture with fifth finger subluxation laceration, right middle finger laceration, left fourth finger laceration with distal subluxation, avulsion pelvic fracture and a left tenth rib fracture. He was seen by Dr. José Miguel Chauhan of orthopedics and Dr. Daniel Rosas. He was seen by hand surgery. He was placed with finger splint for the right hand and a splint to the right lower extremity for the calcaneus fracture and nonoperative treatment was for the right calcaneus fracture. The left elbow laceration repaired with sutures. The patient was asking to be discharged. I saw him on the 6th floor for follow up and he usually presents to my office and was found to be in the hospital. The patient is asking me for help deciding regarding going to a rehab center or going home. Discussed with him the ORTHOPEDIC plan which is to go home and have home health. Checked on him later he was found that he was actually able to ambulate and gripped a walker with his hands. PAST MEDICAL HISTORY Cervical radiculopathy. PAST SURGICAL HISTORY None. FAMILY HISTORY Report his father had some heart disease. Mother noncontributory. SOCIAL HISTORY No alcohol, tobacco or illicit drug usage. ALLERGIES OXYMORPHONE. REVIEW OF SYSTEMS Negative 14-point review of systems except as above. LABORATORY DATA CBC shows 11.8 white blood cells, CBC otherwise within normal limits. Creatinine 1.4 and now 1.1. INR is 1.0. MEDICATIONS Home medications are: 1. Percocet 5 milligrams p.r.n. 2. Methocarbamol 500 milligrams q. 8 hours p.r.n. PHYSICAL EXAMINATION VITAL SIGNS: Temperature 98.0, pulse 66, respirations 18, blood pressure 132/78, pulse ox 96% on room air. GENERAL: He is an alert -Filipino male laying flat. He is in quite a bit of discomfort. He has wrapped upper extremities and right lower extremity. HEENT: Oropharynx is clear. CHEST: Clear. No wheezes, rales, crackles or coughing. CARDIOVASCULAR: Regular rate and rhythm. No murmurs, rubs, clicks or gallops. ABDOMEN: Soft, nontender. No rebound or guarding. EXTREMITIES: No edema in the left lower extremity. The right leg is wrapped. Left fingers are wrapped. Right fingers are wrapped. Skin is overall otherwise clear other than some abrasions and elbow laceration. NEURO: A&O x3. Some general pain in the affected areas with movement. Cranial nerves are intact. ASSESSMENT 1. Left rib fracture. 2. Right middle finger laceration. 3. Open left ring finger laceration, subluxation. 4. Left elbow laceration. 5. Right calcaneus fracture. 6. Pelvic fracture. 7. Cervical radiculopathy. 8. Chronic pain syndrome. PLAN 1. The patient has been cleared to discharge home today with home health care. The patient is happy to go home. He was initially hesitant. He did not want to go to the long term facility. I know him well as an outpatient and he does have a lot of help at home. 2. Will continue to manage his outpatient care and I see him as an outpatient for chronic pain management on a monthly basis. 3. Will have my office reach out to him for an appointment and we may have to do a home visit for him as he is quite debilitated now. 4. Will follow up leukocytosis. 5. Keflex 500 b.i.d. for 5 days. 6. Methocarbamol 500 milligrams q.8 hours, number 30 tablets were given. 7. Percocet 5 milligrams p.r.n., number 30 tablets were given. 8. Senna S. 9. Follow up with hand surgeon, Dr. Rosas and his GROUP WORK PROGRAM AIDE, Ca Dasilva. 10. Follow up with orthopedist, Dr. Rubio Chauhan. 11. ___ walker was prescribed. 12. Wheelchair prescribed. Thank you for the medical consultation. Armando Adams MD RP/EO /6:53 PM /9:02 PM
== END 2016-12-28 18:45 | disposition home health service (06) | DRG 563 ==
LOC: NEPC 16:20 → NEDH 19:25 → N06B 21:04
PROVIDERS: ADMIT Surgery; ATTEND Surgery
PROC: 0HQFXZZ Repair Right Hand Skin, External Approach (ICD-10-PCS; principal; 2016-12-26)
PROC: 0HQEXZZ Repair Left Lower Arm Skin, External Approach (ICD-10-PCS; 2016-12-26)
PROC: 0RSXXZZ Reposition Left Finger Phalangeal Joint, External Approach (ICD-10-PCS; 2016-12-26)
PROC: 0RSWXZZ Reposition Right Finger Phalangeal Joint, External Approach (ICD-10-PCS; 2016-12-26)
DX: S62.616B Displaced fracture of proximal phalanx of right little finger, initial encounter for open fracture (principal); S32.312A Displaced avulsion fracture of left ilium, initial encounter for closed fracture; S22.32XA Fracture of one rib, left side, initial encounter for closed fracture; F17.210 Nicotine dependence, cigarettes, uncomplicated; S92.061A Displaced intraarticular fracture of right calcaneus, initial encounter for closed fracture; S63.286A Dislocation of proximal interphalangeal joint of right little finger, initial encounter; S63.295A Dislocation of distal interphalangeal joint of left ring finger, initial encounter; S51.012A Laceration without foreign body of left elbow, initial encounter; S61.215A Laceration without foreign body of left ring finger without damage to nail, initial encounter; M47.22 Other spondylosis with radiculopathy, cervical region; G89.4 Chronic pain syndrome; G56.00 Carpal tunnel syndrome, unspecified upper limb; W13.2XXA Fall from, out of or through roof, initial encounter; Z88.5 Allergy status to narcotic agent
CPT/HCPCS: 12002; 26770; 70450; 71010; 71260; 72125; 72128; 72131; 72170; 73140; 73600; 74177; 80048; 82435; 82565; 82947; 84132; 84295; 84520; 85025; 85610; 85730; 86850; 86900; 86901; 90715; 93005; 94150; J0690; J1170; J1650; J2270; J2405; J7030; Q9967

== ENCOUNTER → 2017-07-23 | Outpatient (CLI) | payer MEDICARE, OTHER ==
[~2017-07-23] MED LIST changes: +CEPH-460 PO; -CITA10TA4 PO; -HYDR-3535 PO; +METH500T3 PO; +OXYC1TAB63 PO; +SENN1TAB PO; -TRAZ50TA4 PO; +WALKER WHEELS/F1 MIS; +WHEEMIS3; -Z.0.NO CURRENT MEDS
[2017-07-23 09:34] LABS: ALBUMIN 3.7 GM/DL (3.4-5.0); AST (GOT) 18 U/L (15-37); BICARBONATE 23.9 MEQ/L (21.0-32.0); BLOOD UREA NITROGEN 9 MG/DL (7-18); CALCIUM 8.5 MG/DL (8.5-10.1); CHLORIDE 108 MEQ/L (98-107); CREATININE 1.07 MG/DL (0.60-1.30); GLOMERULAR FILTRATION RATE 86 ML/MIN (>89); GLUCOSE,FASTING 98 MG/DL (74-99); SODIUM (NA) 138 MEQ/L (136-145)
[2017-07-23 09:35] LABS: ALT (GPT) 16 U/L (12-78); CHOLESTEROL 237 MG/DL (120-200); TRIGLYCERIDES 147 MG/DL (42-150)
[2017-07-23 09:37] LABS: ALKALINE PHOSPHATASE 80 U/L (45-117); CHOLESTEROL/ HDL RATIO 5.75 RATIO; HDL CHOLESTEROL 41.2 MG/DL (40.0-60.0); LDL CHOLESTEROL 166 MG/DL (0-99); TOTAL BILIRUBIN ADULT 0.7 MG/DL (0.2-1.0); TOTAL PROTEIN 7.5 GM/DL (6.4-8.2)
== END ==
LOC: CLAB 08:17
PROVIDERS: ATTEND Family Medicine
DX: I10 Essential (primary) hypertension (principal); E78.5 Hyperlipidemia, unspecified; E78.00 Pure hypercholesterolemia, unspecified; Z12.11 Encounter for screening for malignant neoplasm of colon; Z79.891 Long term (current) use of opiate analgesic
CPT/HCPCS: 36415; 80053; 80061

== ENCOUNTER → 2017-07-28 | Outpatient (CLI) | payer MEDICARE, OTHER ==
[2017-07-28 12:17] LABS: AST (GOT) 17 U/L (15-37); BICARBONATE 24.9 MEQ/L (21.0-32.0); BLOOD UREA NITROGEN 15 MG/DL (7-18); CALCIUM 8.8 MG/DL (8.5-10.1); CHLORIDE 107 MEQ/L (98-107); CREATININE 1.07 MG/DL (0.60-1.30); GLOMERULAR FILTRATION RATE 86 ML/MIN (>89); GLUCOSE,FASTING 91 MG/DL (74-99); SODIUM (NA) 141 MEQ/L (136-145)
[2017-07-28 12:18] LABS: ALT (GPT) 17 U/L (12-78); CHOLESTEROL 193 MG/DL (120-200); TRIGLYCERIDES 86 MG/DL (42-150)
[2017-07-28 12:21] LABS: ALKALINE PHOSPHATASE 84 U/L (45-117); CHOLESTEROL/ HDL RATIO 5.05 RATIO; HDL CHOLESTEROL 38.2 MG/DL (40.0-60.0); LDL CHOLESTEROL 138 MG/DL (0-99); TOTAL BILIRUBIN ADULT 0.5 MG/DL (0.2-1.0); TOTAL PROTEIN 7.9 GM/DL (6.4-8.2)
== END ==
LOC: CLAB 11:21
PROVIDERS: ATTEND Family Medicine
DX: I10 Essential (primary) hypertension (principal); E78.5 Hyperlipidemia, unspecified; E78.00 Pure hypercholesterolemia, unspecified; Z79.891 Long term (current) use of opiate analgesic
CPT/HCPCS: 36415; 80053; 80061